=== PATIENT | male | born 2000 | race Caucasian/White ===

== ENCOUNTER 2022-09-03 18:21 | Emergency (ER) | payer OTHER ==
[~2022-09-03] VITALS: Ht 188 cm; Wt 127.0 kg
--- NOTE | 2022-09-03 18:37 | NUR ---
TO ER BED 12. BIBS RA 76 FROM HOME, HAD SPINACH AND MUSHROOMS AND HAD AN ALLERGIC REACTION, PT STATED THAT HIS THROAT FELT TIGHT AND FELT SHORT OF BREATH, USED HIS ALBUTEROL INHALER AND THROAT TIGHTNESS RELIEVED SO HER DECIDED TO NOT USED HIS EPI PEN. PT SATTING AT 97%. AWAITING MD ORDERS.
[2022-09-03 18:40] VITALS: BP 153/80
== END 2022-09-03 19:42 | disposition home or self-care (01) ==
LOC: ER 19:04
DX: Z53.21 Procedure and treatment not carried out due to patient leaving prior to being seen by health care provider (principal)

== ENCOUNTER 2022-09-06 20:44 | Emergency (ER) | payer OTHER ==
[~2022-09-06] VITALS: Ht 188 cm; Wt 127.0 kg
[2022-09-06 21:38] VITALS: BP 147/77
--- NOTE | 2022-09-06 21:38 | NUR ---
BIBS from home C/O RECTAL BLEED HX OF COLON CA ALSO C/O LLQ ABD PAIN. PT A/OX4. TOLERATING R/A WELL WITH NO RESP DISTRESS.
--- NOTE | 2022-09-06 21:47 | NUR ---
RAC #[id number] S/L BLOOD COLLECTED AND SENT TO LAB
[2022-09-06 21:59] LABS: BASOPHILS % (AUTO) 0.3 % (0.0-2.0); EOSINOPHILS % (AUTO) 2.7 % (0.0-6.0); HEMATOCRIT 50 % (39-51); HEMOGLOBIN 16.6 g/dL (13.5-17.5); LYMPHOCYTES # (AUTO) 2.9 K/uL (0.8-4.8); LYMPHOCYTES % (AUTO) 35.2 % (20.0-44.0); MEAN CORPUSCULAR HGB CONC 33 g/dl (31.0-36.0); MEAN CORPUSCULAR VOLUME 88 fL (80-96); MONOCYTES # (AUTO) 0.6 K/uL (0.1-1.30); MONOCYTES % (AUTO) 7.3 % (2.0-12.0); NEUTROPHILS # (AUTO) 4.5 K/uL (1.8-8.9); NEUTROPHILS % (AUTO) 54.5 % (43.0-81.0); PLATELET COUNT (AUTO) 191 K/uL (150-450); RED BLOOD CELL COUNT(AUTO) 5.68 MIL/uL (4.5-6.0); WHITE BLOOD COUNT (AUTO) 8.3 K/uL (4.3-11.0)
[2022-09-06] MEDS ORDERED: IV NS 0.9% 250 ML IV ONE (22:28)
[2022-09-06] MEDS ORDERED: CT SWABBABLE VALVE TRANS SET 1 EA INFUS.SET MC ONE (22:28)
[2022-09-06] MEDS ORDERED: IOHEXOL-300 100 ML VIAL IV ONE (22:28)
[2022-09-06 22:43] LABS: ALBUMIN 4.3 g/dL (3.4-5.0); BILIRUBIN,DIRECT 0.1 mg/dL (0.0-0.2); BILIRUBIN,TOTAL 0.2 mg/dL (0.2-1.0); CALCIUM, SERUM 9.6 mg/dL (8.5-10.1); POTASSIUM 3.8 mmol/L (3.5-5.1); TOTAL PROTEIN, SERUM 7.8 g/dL (6.4-8.2)
--- NOTE | 2022-09-06 22:59 | NUR ---
PT RETURNED TO ER BED [address]
--- NOTE | 2022-09-07 01:08 | NUR ---
Patient does not wish to proceed with medical care recommended by Dr. Lazo. Patient given information related to possible complications, up to and including , which could occur as a result of leaving the hospital at this time. Patient verbalizes understanding of risks involved due to leaving against medical advice. Patient has signed AMA form. IV removed. Catheter intact and site benign. Pressure and 4x4 applied to site. No bleeding noted.
== END 2022-09-07 01:08 | disposition left against medical advice (07) ==
LOC: ER 20:47
DX: K62.5 Hemorrhage of anus and rectum (principal); R10.32 Left lower quadrant pain; F17.200 Nicotine dependence, unspecified, uncomplicated
CPT/HCPCS: 36415; 80048-TC; 80076-TC; 85025-TC; J7050; Q9967

== ENCOUNTER 2023-11-03 17:39 | Emergency (ER) | payer OTHER ==
[~2023-11-03] VITALS: Ht 188 cm; Wt 117.9 kg
[2023-11-03 18:06] VITALS: BP 129/68; TEMP 98.6; O2SAT 99
== END 2023-11-03 20:32 | disposition left against medical advice (07) ==
LOC: ER 17:44
DX: R10.9 Unspecified abdominal pain (principal); Z87.442 Personal history of urinary calculi; Z53.21 Procedure and treatment not carried out due to patient leaving prior to being seen by health care provider